=== PATIENT | male | born 1945 | race Caucasian/White ===

== ENCOUNTER 2024-02-28 10:29 | Observation (INO) | payer BC, OTHER ==
[2024-02-28] MEDS ORDERED: CEFTRIAXONE 1000 MG/VIAL ONE (10:59)
[2024-02-28] MEDS ORDERED: NA CHLORIDE 0.9% 100 ML ONE (11:00)
[2024-02-28] MEDS ORDERED: DOXYCYCLINE HYCLATE 100MG INJ ONE (11:00)
[2024-02-28 11:21] LABS: Absolute Basophils 0.1 K/uL (0-0.5); Absolute Lymphocytes (CBC) 0.9 K/uL (0.7-4.9); Absolute Monocytes 0.7 K/uL (0.1-1.3); Absolute Neutrophil 12.6 K/uL (1.8-8.0); Basophils % 0.6 % (0-1.3); Eosinophils % 0.1 % (0-4.4); Hematocrit 41.5 % (39.6-49.0); Hemoglobin 13.6 g/dL (13.6-17.9); Lymphocytes % 6.5 % (15.3-44.8); MCH 29.1 pg (27.0-35.0); MCHC 32.8 g/dL (32.0-36.0); MCV 88.9 fL (80-100); Neutrophils % 87.8 % (41.7-73.7); Platelets 261 thou/uL (152-406); RBC Red Blood Cell Count 4.67 M/uL (4.33-5.43); Red Cell Distribution Width 13.8 % (12.1-15.2)
[2024-02-28 11:22] LABS: PT Prothrombin Time 13.1 SECONDS (9.5-12.5); PTT, Activated Partial Thromb 31.3 SECONDS (24.3-36.9); Protime INR 1.2
[2024-02-28 11:34] LABS: Albumin 2.8 g/dL (3.4-5.0); Albumin/Globulin Ratio 0.6 (1.1-1.8); Anion Gap 9.4 mEq/L (5.0-15.0); Bilirubin Total 0.9 mg/dL (0.2-1.0); Globulin 4.9 g/dL (2.3-3.5); Potassium 3.4 mEq/L (3.5-5.1); Protein, Total 7.7 g/dL (6.4-8.2)
--- NOTE | 2024-02-28 11:58 | RAD REPORT ---
EXAM DESCRIPTION: Ade Single View02/28/2024 11:26 am CLINICAL HISTORY: Cough COMPARISON: none FINDINGS: Mild patchy opacities within the lung bases. Upper lobes appear clear. The heart is mildly enlarged IMPRESSION: Mild bibasilar patchy opacities may indicate pneumonia
[2024-02-28 12:04] LABS: Blood Morphology Comment NOT SEEN (NOT SEEN); Platelet Estimate ADEQ; White Blood Cell Scan OK (OK)
--- NOTE | 2024-02-28 12:29 | EDPHYS ---
Physician Documentation [facility] Name: [facility] Age: 78 yrs Sex: Male : 1945 Arrival Date: 02/28/2024 Time: 10:29 Bed 2 Private MD: Kingsley Chacon ED Physician Shilo Mohamud HPI: 02/27 10:59 This 78 yrs old Male presents to ER via Ambulatory with complaints of ec2 Breathing Difficulty, Back Pain. 10:59 Patient arrives today for evaluation of shortness of breath. Patient has been having ec2 cough, colored, no fevers or chills, no nausea or vomiting. History of COPD, no baseline oxygen requirement.. Historical: - Allergies: 10:42 PENICILLINS; as6 - PMHx: 10:42 Hypertensive disorder; Diabetes mellitus; Chronic obstructive lung disease; as6 - PSHx: 10:42 None; as6 - Immunization history:: Adult Immunizations up to date. - Infectious Disease History:: Denies. - Social history:: Smoking status: Patient/guardian denies using tobacco. ROS: 10:59 Constitutional: as per hpi ec2 Exam: 10:59 Constitutional: GEN: NAD Head: atraumatic Eyes: EOMI Ears: External ears are ec2 normal. CV: Tachycardia LUNGS: Scattered wheezes noted throughout all lung larios. ABD: non-distended SKIN: no evidence of rashes MSK: no evidence of trauma NEURO: moves all extremities equally Vital Signs: 10:41 BP 144 / 76; Pulse 105; Resp 18; Temp 98.3; Pulse Ox 88% ; Weight 85.73 kg; Height 5 as6 ft. 8 in. ; Pain 3/10; 10:45 Pulse Ox 96% on 2 lpm NC; aa5 11:15 BP 139 / 57; Pulse 84; Resp 24 S; Pulse Ox 95% on 2 lpm NC; aa5 12:12 BP 135 / 61; Pulse 86; Resp 18; Pulse Ox 96% on 2 lpm NC; rs5 14:59 Resp 20 S; Pulse Ox 97% on 4 lpm NC; jg11 10:41 Body Mass Index 28.74 (85.73 kg, 172.72 cm) as6 10:41 Pain Scale: Adult as6 MDM: 10:53 Patient medically screened. ec2 10:59 Data reviewed: vital signs. ED course: Patient arrives today for evaluation of ec2 shortness of breath. Examination remarkable for cardiorespiratory findings as above. Will obtain a septic workup, apparently treat with antibiotics and give the patient DuoNeb and steroids. Differential diagnosis includes COPD exacerbation, pneumonia, volume overload. . 11:21 ED course: EKG independently reviewed and interpreted by me, shows normal sinus rhythm, ec2 rate 94, no acute ST segment elevations, intervals are nonconcerning, right bundle branch block noted, first-degree AV block noted.. 11:54 ED course: CBC shows leukocytosis with a WBC of 14.4. Metabolic profile shows slight ec2 hypokalemia with a potassium of 3.4. Renal dysfunction with a creatinine of 1.4, GFR 51. Lactate within normal ranges. . 12:27 ED course: Chest x-ray independently and reviewed and interpreted by me, shows concern ec2 for pneumonia. Will admit for sepsis secondary to pneumonia. . 12:36 ED course: MDM: Differential diagnosis as documented above in ED course; All lab tests ec2 ordered and reviewed as documented above; Independent interpretation of tests: EKG as above; imaging as above; History gathered from independent historian: Yes;family; Discuss inpatient hospitalization: Yes; I discussed the case with: Hospitalist . 02/27 10:49 Order name: Blood Culture Adult (2) ec2 02/27 10:49 Order name: CBC with Diff; Complete Time: 12:27 ec2 02/27 10:49 Order name: CMP; Complete Time: 11:53 ec2 02/27 10:49 Order name: Lactate w/ 2H reflex if indic.; Complete Time: 11:53 ec2 02/27 10:49 Order name: Protime (+inr); Complete Time: 11:53 ec2 02/27 10:49 Order name: Ptt, Activated; Complete Time: 11:53 ec2 02/27 11:24 Order name: CBC Smear Scan; Complete Time: 12:27 EDMS 02/27 13:50 Order name: Basic Metabolic Panel EDAL 02/27 13:50 Order name: Basic Metabolic Panel EDAL 02/27 13:50 Order name: Basic Metabolic Panel EDAL 02/27 13:50 Order name: Basic Metabolic Panel EDAL 02/27 13:50 Order name: Basic Metabolic Panel EDAL 06/14 13:50 Order name: Basic Metabolic Panel EDMS 06/14 13:50 Order name: CBC with Automated Diff EDMS 06/14 13:50 Order name: CBC with Automated Diff EDMS 06/14 13:50 Order name: CBC with Automated Diff EDMS 06/14 13:50 Order name: CBC with Automated Diff EDMS 06/14 13:50 Order name: CBC with Automated Diff EDMS 06/14 13:50 Order name: CBC with Automated Diff EDMS 06/14 13:50 Order name: Hemoglobin A1c EDMS 06/14 13:50 Order name: Hemoglobin A1c EDMS 06/14 13:50 Order name: Magnesium EDMS 06/14 13:50 Order name: Magnesium EDMS 06/14 13:50 Order name: Magnesium EDMS 06/14 13:50 Order name: Magnesium EDMS 06/14 13:50 Order name: Magnesium EDMS 06/14 13:50 Order name: Magnesium EDMS 06/14 13:50 Order name: Phosphorus EDMS 06/14 13:50 Order name: Phosphorus EDMS /14 13:50 Order name: Phosphorus EDMS 06/14 13:50 Order name: Phosphorus EDMS 06/14 13:50 Order name: Phosphorus EDMS 06/14 13:50 Order name: Phosphorus EDMS 06/14 10:49 Order name: Chest Single View XRAY; Complete Time: 12:27 ec2 02/27 10:49 Order name: EKG; Complete Time: 10:50 ec2 02/27 10:49 Order name: Accucheck; Complete Time: 11:11 ec2 02/27 10:49 Order name: Cardiac monitoring; Complete Time: 11:06 ec2 02/27 10:49 Order name: EKG - Nurse/Tech; Complete Time: 11:06 ec2 02/27 10:49 Order name: IV Saline Lock - Large Bore; Complete Time: 11:06 ec2 02/27 10:49 Order name: Labs collected and sent; Complete Time: 11:11 ec2 02/27 10:49 Order name: O2 Per Protocol; Complete Time: 11:07 ec2 02/27 10:49 Order name: O2 Sat Monitoring; Complete Time: 11:06 ec2 02/27 10:49 Order name: Vital Signs; Complete Time: 11:07 ec2 Administered Medications: 11:26 Drug: Rocephin IV 1 grams IV at calculated rate once; Given slow IV push per pharmacy aa5 instructions Route: IV; Rate: calculated rate; Site: right hand; 11:30 Follow up: Response: No adverse reaction; IV Status: Completed infusion aa5 12:00 Follow up: Response: No adverse reaction rs5 11:30 Drug: vibramycin - Doxycycline IVPB 100 mg IVPB at 100 ml/hr once; (mix in 100 ml NS) aa5 Route: IVPB; Rate: 100 ml/hr; Site: right hand; 12:00 Follow up: Response: No adverse reaction rs5 Disposition: 12:28 Critical Care:. ec2 Disposition Summary: 02/28/24 12:28 Hospitalization Ordered Notes: Hospitalization Status: Inpatient Admission ec2 Location: Telemetry/[facility] (Inpatient) ec2 Condition: Stable ec2 Problem: new ec2 Symptoms: have improved ec2 Bed/Room Type: Standard ec2 Provider: Javed Gramajo(02/28/24 12:53) ec2 Room Assignment: [facility](02/28/24 14:42) eb Diagnosis - Sepsis, unspecified organism ec2 - Unspecified bacterial pneumonia ec2 Forms: - Medication Reconciliation Form ec2 - SBAR form ec2 - Leadership Thank You Letter ec2 Critical care time excluding procedures: 12:28 Critical care time: Bedside Care: 30 minutes, Consultation: 5 minutes. Total time: 35 ec2 minutes Signatures: Dispatcher [employer] EDIsabelle Foreman RN RN aa5 Nesha Hinojosa Ashby, RN RN as6 Shilo Mohamud MD MD ec2 Gilberto Frey RN rs5 Corrections: (The following items were deleted from the chart) 10:50 10:50 BLOOD CULTURE*+BA.LAB.BRZ ordered. EDMS EDMS 10:50 10:50 CBC+H.LAB.BRZ ordered. EDMS EDMS 10:50 10:50 COMPREHENSIVE METABOLIC PANEL+C.LAB.BRZ ordered. EDMS EDMS 10:50 10:50 LACTATE+C.LAB.BRZ ordered. EDMS EDMS 10:50 10:50 PROTIME (+INR)+COAG.LAB.BRZ ordered. EDMS EDMS 10:50 10:50 PTT, ACTIVATED+COAG.LAB.BRZ ordered. EDMS EDMS 12:53 12:28 Wilma Alvarado ec2 ec2 14:42 12:28 ec2 eb
--- NOTE | 2024-02-28 12:29 | ER ---
Nurse's Notes [facility] Name: [facility] Age: 78 yrs Sex: Male : 1945 Arrival Date: 02/28/2024 Time: 10:29 Bed 2 Private MD: Kingsley Chacon Diagnosis: Sepsis, unspecified organism;Unspecified bacterial pneumonia Presentation: 02/27 10:41 Chief complaint: Patient states: upper back pain and difficulty breathing that started as6 yesterday. Coronavirus screen: At this time, the client does not indicate any symptoms associated with coronavirus-19. Ebola Screen: No symptoms or risks identified at this time. Initial Sepsis Screen: Does the patient meet any 2 criteria? HR > 90 bpm. Does the patient have a suspected source of infection? No. Patient's initial sepsis screen is negative. Risk Assessment: Do you want to hurt yourself or someone else? Patient reports no desire to harm self or others. Onset of symptoms was February 27, 2024. 10:41 Acuity: KORINA 2 as6 10:41 Method Of Arrival: Ambulatory as6 Historical: - Allergies: 10:42 PENICILLINS; as6 - PMHx: 10:42 Hypertensive disorder; Diabetes mellitus; Chronic obstructive lung disease; as6 - PSHx: 10:42 None; as6 - Immunization history:: Adult Immunizations up to date. - Infectious Disease History:: Denies. - Social history:: Smoking status: Patient/guardian denies using tobacco. Screenin:45 [facility] ED Fall Risk Assessment (Adult) History of falling in the last 3 months, aa5 including since admission No falls in past 3 months (0 pts) Confusion or Disorientation No (0 pts) Intoxicated or Sedated No (0 pts) Impaired Gait No (0 pts) Mobility Assist Device Used No (0 pt) Altered Elimination No (0 pt) Score/Fall Risk Level 0 - 2 = Low Risk Oriented to surroundings, Maintained a safe environment, Educated pt \T\ family on fall prevention, incl call for assistance when getting out of bed. Abuse screen: Denies threats or abuse. Nutritional screening: No deficits noted. Tuberculosis screening: No symptoms or risk factors identified. Assessment: 10:34 General: Appears in no apparent distress. uncomfortable, Behavior is calm, cooperative. rs5 Pain: Complains of pain in back Pain currently is 2 out of 10 on a pain scale. Quality of pain is described as aching, Is continuous. Neuro: Level of Consciousness is awake, alert, obeys commands, Oriented to person, place, time, situation. Cardiovascular: Patient's skin is warm and dry. Rhythm is regular. Respiratory: Airway is patent Respiratory effort is even, unlabored, Respiratory pattern is regular, symmetrical, Respiratory: Reports shortness of breath. GI: Abdomen is round non-distended, Abd is soft and non tender X 4 quads. : No signs and/or symptoms were reported regarding the genitourinary system. EENT: No signs and/or symptoms were reported regarding the EENT system. Derm: Skin is intact, Skin is dry, Skin is pink, warm \T\ dry. Musculoskeletal: Range of motion: intact in all extremities. 11:45 Reassessment: Patient and/or family updated on plan of care and expected duration. Pain rs5 level reassessed. Patient is alert, oriented x 3, equal unlabored respirations, skin warm/dry/pink. Patient states feeling better. 12:12 Reassessment: No changes from previously documented assessment. rs5 Vital Signs: 10:41 BP 144 / 76; Pulse 105; Resp 18; Temp 98.3; Pulse Ox 88% ; Weight 85.73 kg; Height 5 as6 ft. 8 in. ; Pain 3/10; 10:45 Pulse Ox 96% on 2 lpm NC; aa5 11:15 BP 139 / 57; Pulse 84; Resp 24 S; Pulse Ox 95% on 2 lpm NC; aa5 12:12 BP 135 / 61; Pulse 86; Resp 18; Pulse Ox 96% on 2 lpm NC; rs5 14:59 Resp 20 S; Pulse Ox 97% on 4 lpm NC; jg11 10:41 Body Mass Index 28.74 (85.73 kg, 172.72 cm) as6 10:41 Pain Scale: Adult as6 ED Course: 10:31 Patient arrived in ED. rg4 10:32 Kingsley Chacon MD is Private Physician. rg4 10:33 Shilo Mohamud MD is Attending Physician. ec2 10:42 Triage completed. as6 10:43 Arm band placed on. as6 10:43 Oxygen administration via nasal cannula \T\ 2L/min. as6 10:45 Patient has correct armband on for positive identification. Bed in low position. Call aa5 light in reach. Side rails up X2. Adult w/ patient. Client placed on continuous cardiac and pulse oximetry monitoring. NIBP monitoring applied. surveillance monitor on. Pulse ox on. NIBP on. 11:06 Inserted saline lock: 22 gauge in right hand, using aseptic technique. Blood collected. rs5 11:07 EKG done, by ED staff, reviewed by Shilo Mohamud MD. jg11 11:28 Chest Single View XRAY In Process Unspecified. EDMS 12:12 No provider procedures requiring assistance completed. rs5 12:28 Wilma Alvarado MD is Hospitalizing Provider. ec2 12:53 Javed Gramajo is Hospitalizing Provider. ec2 15:00 Oxygen administration via nasal cannula \T\ 4L/min. jg11 Administered Medications: 11:26 Drug: Rocephin IV 1 grams IV at calculated rate once; Given slow IV push per pharmacy aa5 instructions Route: IV; Rate: calculated rate; Site: right hand; 11:30 Follow up: Response: No adverse reaction; IV Status: Completed infusion aa5 12:00 Follow up: Response: No adverse reaction rs5 11:30 Drug: vibramycin - Doxycycline IVPB 100 mg IVPB at 100 ml/hr once; (mix in 100 ml NS) aa5 Route: IVPB; Rate: 100 ml/hr; Site: right hand; 12:00 Follow up: Response: No adverse reaction rs5 Medication: 11:42 VIS not applicable for this client. aa5 Outcome: 12:28 Decision to Hospitalize by Provider. ec2 15:48 Patient left the ED. hb Signatures: Dispatcher [employer] EDNM Isabelle Díaz, SHARA RN aa5 Katelyn Huerta RN RN Carol Mock rg4 Jose Enamorado RN RN as6 Gilberto Frey RN RN rs5 Shilo Mohamud MD MD ec2 Malik Cantor jg11 Corrections: (The following items were deleted from the chart) 14:39 10:46 Isabelle Díaz RN is Primary Nurse. aa5 aa5
--- NOTE | 2024-02-28 13:04 | P.HP ---
Certification for Inpatient Patient admitted to: Inpatient With expected LOS: >2 Midnights Practitioner: I am a practitioner with admitting privileges, knowledge of patient current condition, hospital course, and medical plan of care. Services: Services provided to patient in accordance with Admission requirements found in Title 42 Section 412.3 of the Code of Federal Regulations Patient History Date of Service: 02/28/24 Reason for admission: COPD exacerbation secondary to pneumonia History of Present Illness: [facility] Blair is an 78-year-old male with past medical history of hypertension, diabetes mellitus, COPD (no home oxygen) who presents to the ED with chief complaint of shortness of breath. While in the ED chest x-ray was performed showing "Mild bibasilar patchy opacities may indicate pneumonia." EKG showing first-degree heart block, leukocytosis with WBC 14.4. Rocephin and doxycycline given in the ED. Initial vital BP 144 / 76; Pulse 105; Resp 18; Temp 98.3; Pulse Ox 88% [facility] Blair will be admitted to hospitalist service for further evaluation and treatment. Allergies Penicillins Allergy (Verified 02/28/24 15:58) Hives/Rash - Past Medical/Surgical History -: Hypertension -: COPD -: Diabetes mellitus - Family History Family History: Reviewed- Non-Contributory - Social History Smoking Status: Former smoker Alcohol use: No CD- Drugs: No Review of Systems Respiratory: Cough, Shortness of Breath Physical Examination - Physical Exam General: Alert, In no apparent distress, Oriented x3 HEENT: Atraumatic, Normocephalic, PERRLA Respiratory: Normal air movement, Crackles/rales Cardiovascular: Normal pulses, Regular rate/rhythm, Normal S1 S2 Capillary refill: <2 Seconds Gastrointestinal: Normal bowel sounds, Soft and benign Musculoskeletal: No clubbing Integumentary: No rashes Neurological: Normal speech, Normal tone - Studies Laboratory Data (last 24 hrs) 02/28/24 02/28/24 02/28/24 11:03 11:03 11:03 WBC 14.40 H Hgb 13.6 Hct 41.5 Plt Count 261 PT 13.1 H INR 1.20 APTT 31.3 Sodium 135 L Potassium 3.4 L BUN 32 H Creatinine 1.40 H Glucose 239 H Total Bilirubin 0.9 AST 32 ALT 50 Alkaline Phosphatase 79 Assessment and Plan - Plan Assessment and plan Acute hypoxic respiratory failure secondary to pneumonia Leukocytosis History of COPD -WBC 14.4 -CXR reports "Mild patchy opacities within the lung bases. Upper lobes appear clear. The heart is mildly enlarged. IMPRESSION: Mild bibasilar patchy opacities may indicate pneumonia" - Nebulizer, levaquin -Oxygen supplementation, he does not wear oxygen at home Acute kidney injury Electrolyte imbalance -BUN/creatinine 32/1.4, GFR 51 -Sodium 135, potassium 3.4-replete -Gentle IV fluids -Monitor in a.m. labs Diabetes mellitus -Accu-Chek with sliding scale insulin -Serum glucose 239 -A1c in the a.m. History of hypertension -Restart home medication when available DVT PPx heparin Full code LOS 2 to 3 days Discharge Plan: Home Plan to discharge in: 48 Hours - Advance Directives Does patient have a Living Will: No Does patient have a Durable POA for Healthcare: No
[2024-02-28] MEDS ORDERED: ALBUTEROL 2.5 MG/3 ML NEB SOL NEB PRN (13:43)
[2024-02-28] MEDS ORDERED: Levofloxacin500mg IV 500 MG/100 ML BAG IV SCH (15:00)
[2024-02-28] MEDS: LEVOFLOXACIN 750MG/D5W 150 ML IV SCH (16:30)
[2024-02-28] MEDS: HEPARIN 5000 UNIT/ML 1 ML VIAL SQ SCH (16:31)
[2024-02-28 19:38] VITALS: BMI 28.7
[2024-02-28] MEDS: IPRATROPIUM BROM 0.5MG/2.5ML NEB SCH (20:13)
[2024-02-28] MEDS: INSULIN REGULAR (HUMAN) 100 UNIT/ML SQ SCH (20:45)
[2024-02-28] MEDS: NACHLORIDE 0.45% 1,000 ML IV SCH (20:45)
[2024-02-29 04:02] LABS: Absolute Basophils 0.1 K/uL (0-0.5); Absolute Eosinophils 0.1 K/uL (0-0.5); Absolute Lymphocytes (CBC) 2.1 K/uL (0.7-4.9); Absolute Neutrophil 8.8 K/uL (1.8-8.0); Basophils % 0.8 % (0-1.3); Eosinophils % 0.5 % (0-4.4); Hematocrit 39.2 % (39.6-49.0); Lymphocytes % 17.1 % (15.3-44.8); MCH 29.3 pg (27.0-35.0); MCHC 33.1 g/dL (32.0-36.0); MCV 88.7 fL (80-100); MPV 10.3 fL (7.6-11.3); Monocytes % 8.4 % (3.3-12.3); Neutrophils % 73.2 % (41.7-73.7); Nucleated Red Blood Cells % 0.1 % (0-0); Platelets 253 thou/uL (152-406); RBC Red Blood Cell Count 4.42 M/uL (4.33-5.43); Red Cell Distribution Width 13.9 % (12.1-15.2)
[2024-02-29 04:15] LABS: Anion Gap 7.5 mEq/L (5.0-15.0); Magnesium 2.5 mg/dL (1.6-2.4); Phosphorus 1.8 mg/dL (2.5-4.9); Potassium 3.5 mEq/L (3.5-5.1)
[2024-02-29] MEDS: POTASS/SODIUM PHOSPHATE 1 PKT POWD.PACK PO SCH (06:37)
[2024-02-29 08:44] VITALS: BP 143/77; TEMP 97.5
[2024-02-29] MEDS: POTASSIUM CL SA 10 MEQ TAB PO ONE (09:17)
[2024-02-29] MEDS: POTASS/SODIUM PHOSPHATE 1 PKT POWD.PACK ONE (09:19)
[2024-02-29] MEDS ORDERED: IPRATROPIUM BROM 0.5MG/2.5ML NEB PRN (09:38)
--- NOTE | 2024-02-29 09:40 | P.PN ---
Date of Service: 02/29/24
--- NOTE | 2024-02-29 10:54 | P.DS ---
Admission Date: 02/28/24 Discharge Date: 02/29/24 Disposition: ROUTINE DISCHARGE Discharge Condition: FAIR Reason for Admission: COPD exacerbation secondary to pneumonia - Problems (1) Bacterial pneumonia Current Visit: Yes Status: Acute (2) COPD exacerbation Current Visit: Yes Status: Acute Brief History of Present Illness: [facility] Blair is an 78-year-old male with past medical history of hypertension, diabetes mellitus, COPD who presented to the ED with chief complaint of shortness of breath. Patient also reported associated wheezing and felt he was getting a flare of his COPD. While in the ED chest x-ray was performed showing "Mild bibasilar patchy opacities may indicate pneumonia." EKG showing first-degree heart block, leukocytosis with WBC 14.4. Rocephin and doxycycline given in the ED. Initial vital BP 144 / 76; Pulse 105; Resp 18; Temp 98.3; Pulse Ox 88% Patient was admitted for further management. Hospital Course: Patient was placed on observation on the medical floor, treated with IV Levaquin, bronchodilators and placed on oral steroids. Patient respiratory symptoms improved rapidly with treatment. He had dehydration and LORENZO which resolved with IV hydration. He feels he is at baseline this morning, denies shortness of breath or wheezing. He is ambulatory and tolerating his diet. Vitals are stable for discharge. Vital Signs/Physical Exam: Temp Pulse Resp BP Pulse Ox 97.5 F 53 14 143/77 H 98 02/29/24 08:00 02/29/24 08:00 02/29/24 08:00 02/29/24 08:00 02/29/24 08:00 General: Alert, In no apparent distress, Oriented x3 HEENT: Mucous membr. moist/pink Neck: Supple, JVD not distended Respiratory: Clear to auscultation bilaterally, Normal air movement Cardiovascular: No edema, Regular rate/rhythm, Normal S1 S2 Gastrointestinal: Normal bowel sounds, Soft and benign, Non-distended, No tenderness Musculoskeletal: No swelling Integumentary: No rashes, No cyanosis Neurological: Normal strength at 5/5 x4 extr Laboratory Data at Discharge: WBC 12.00 thou/uL (4.3-10.9) H 02/29/24 03:45 Hgb 13.0 g/dL (13.6-17.9) L 02/29/24 03:45 Hct 39.2 % (39.6-49.0) L 02/29/24 03:45 Plt Count 253 thou/uL (152-406) 02/29/24 03:45 PT 13.1 SECONDS (9.5-12.5) H 02/28/24 11:03 INR 1.20 02/28/24 11:03 APTT 31.3 SECONDS (24.3-36.9) 02/28/24 11:03 Sodium 137 mEq/L (136-145) 02/29/24 03:45 Potassium 3.5 mEq/L (3.5-5.1) 02/29/24 03:45 BUN 27 mg/dL (7-18) H 02/29/24 03:45 Creatinine 1.03 mg/dL (0.70-1.30) 02/29/24 03:45 Glucose 93 mg/dL (74-106) 02/29/24 03:45 Phosphorus 1.8 mg/dL (2.5-4.9) L 02/29/24 03:45 Magnesium 2.5 mg/dL (1.6-2.4) H 02/29/24 03:45 Total Bilirubin 0.9 mg/dL (0.2-1.0) 02/28/24 11:03 AST 32 U/L (15-37) 02/28/24 11:03 ALT 50 U/L (16-61) 02/28/24 11:03 Alkaline Phosphatase 79 U/L (45-117) 02/28/24 11:03 Home Medications: Albuterol Inhaler [Ventolin Inhaler*] 1 puff IH Q6HP PRN 02/28/24 Fluticasone Propion/Salmeterol [Fluticasone-Salmeterol 115-21] 1 puff IH BID 02/28/24 Fluticasone [Flonase 50MCG Nasal [place]*] 1 spr CARLOS DAILY 02/28/24 Lisinopril/Hydrochlorothiazide [Lisinopril-Hctz 20-25 mg Tab] 1 tab PO DAILY 02/28/24 Tamsulosin HCl 0.4 mg PO BID 02/28/24 predniSONE [Deltasone*] 10 mg PO BID 02/28/24 levoFLOXacin [Levaquin] 750 mg PO DAILY #6 tab 02/29/24 New Medications: levoFLOXacin [Levaquin] 750 mg PO DAILY #6 tab Diet: AHA Activity: Ad jessica Followup: Kingsley Chacon MD [Primary Care Provider] - Time spent managing pt's care (in minutes): 28
--- NOTE | 2024-02-29 11:08 | P.DS ---
Admission Date: 02/28/24 Discharge Date: 02/29/24 Disposition: ROUTINE DISCHARGE Discharge Condition: GOOD Reason for Admission: COPD exacerbation secondary to pneumonia Brief History of Present Illness: Diagnosis Acute hypoxic respiratory failure secondary to pneumonia Leukocytosis History of COPD Acute kidney injury Electrolyte imbalance Diabetes mellitus History of hypertension HPI 02/28/2024 Saint Humberto Blair is an 78-year-old male with past medical history of hypertension, diabetes mellitus, COPD (no home oxygen) who presents to the ED with chief complaint of shortness of breath. While in the ED chest x-ray was performed showing "Mild bibasilar patchy opacities may indicate pneumonia." EKG showing first-degree heart block, leukocytosis with WBC 14.4. Rocephin and doxycycline given in the ED. Initial vital BP 144 / 76; Pulse 105; Resp 18; Temp 98.3; Pulse Ox 88% St. Humberto Blair will be admitted to hospitalist service for further evaluation and treatment. Hospital Course: Saint Humberto Blair is a pleasant 78-year-old male with a past medical history significant for hypertension, diabetes mellitus, COPD (no home oxygen) who was admitted to the [facility] on 02/28/2024 for shortness of breath. Saint Humberto Blair presented to the ED with chief complaint of shortness of breath. Chest x-ray indicates possible pneumonia and white blood cell count mildly elevated. He has responded well to IV antibiotics and is on room air. He can continue antibiotics therapy at discharge and follow-up with Dr. Ortiz and PCP for further medication management. Allow 7 days to fully recover before working in the heat. He is tolerating p.o. diet, ambulating independently, on room air, and hemodynamically stable for discharge. On 02/29/2024, Mr. Blair was seen on morning rounds and deemed medically stable for discharge. Mr. Blair was discharged with instructions to schedule follow-up appointments with PCP and Dr. Mix. Mr. Blair was provided prescriptions for Levaquin. The patient was given the opportunity to ask questions and reported no further questions. Furthermore, all questions were answered to the best of my ability. A copy of this discharge summary will be sent to the above providers to facilitate continuity of care. Physical Exam General: Alert and oriented x 3, NAD, conversing well HEENT: Atraumatic, Normocephalic, PERRLA Respiratory: Normal air movement, mild expiratory wheezing to left lower lung field Cardiovascular: NSR, Normal S1 S2 present Capillary refill: <2 Seconds Gastrointestinal: Normal bowel sounds, Soft and benign on palpation, ND/NT Musculoskeletal: No clubbing Integumentary: No rashes Neurological: Normal speech, Normal tone Vital Signs/Physical Exam: Temp Pulse Resp BP Pulse Ox 97.5 F 53 14 143/77 H 98 02/29/24 08:00 02/29/24 08:00 02/29/24 08:00 02/29/24 08:00 02/29/24 08:00 Laboratory Data at Discharge: WBC 12.00 thou/uL (4.3-10.9) H 02/29/24 03:45 Hgb 13.0 g/dL (13.6-17.9) L 02/29/24 03:45 Hct 39.2 % (39.6-49.0) L 02/29/24 03:45 Plt Count 253 thou/uL (152-406) 02/29/24 03:45 PT 13.1 SECONDS (9.5-12.5) H 02/28/24 11:03 INR 1.20 02/28/24 11:03 APTT 31.3 SECONDS (24.3-36.9) 02/28/24 11:03 Sodium 137 mEq/L (136-145) 02/29/24 03:45 Potassium 3.5 mEq/L (3.5-5.1) 02/29/24 03:45 BUN 27 mg/dL (7-18) H 02/29/24 03:45 Creatinine 1.03 mg/dL (0.70-1.30) 02/29/24 03:45 Glucose 93 mg/dL (74-106) 02/29/24 03:45 Phosphorus 1.8 mg/dL (2.5-4.9) L 02/29/24 03:45 Magnesium 2.5 mg/dL (1.6-2.4) H 02/29/24 03:45 Total Bilirubin 0.9 mg/dL (0.2-1.0) 02/28/24 11:03 AST 32 U/L (15-37) 02/28/24 11:03 ALT 50 U/L (16-61) 02/28/24 11:03 Alkaline Phosphatase 79 U/L (45-117) 02/28/24 11:03 Home Medications: Albuterol Inhaler [Ventolin Inhaler*] 1 puff IH Q6HP PRN 02/28/24 Fluticasone Propion/Salmeterol [Fluticasone-Salmeterol 115-21] 1 puff IH BID 02/28/24 Fluticasone [Flonase 50MCG Nasal Seffner*] 1 spr CARLOS DAILY 02/28/24 Lisinopril/Hydrochlorothiazide [Lisinopril-Hctz 20-25 mg Tab] 1 tab PO DAILY 02/28/24 Tamsulosin HCl 0.4 mg PO BID 02/28/24 predniSONE [Deltasone*] 10 mg PO BID 02/28/24 levoFLOXacin [Levaquin] 750 mg PO DAILY #6 tab 02/29/24 New Medications: levoFLOXacin [Levaquin] 750 mg PO DAILY #6 tab Physician Discharge Instructions: Saint Humberto Blair presented to the ED with chief complaint of shortness of breath. Chest x-ray indicates possible pneumonia and white blood cell count mildly elevated. He has responded well to IV antibiotics and is on room air. He can continue antibiotics therapy at discharge and follow-up with Dr. Ortiz and PCP for further medication management. Allow 7 days to fully recover before working in the heat. 1. Please call and schedule a follow-up appointment with your PCP in 3-5 days - Please follow-up with your PCP for medication refills/adjustments 2. Please call and schedule a follow-up appointment with Dr Ortiz in 1-2 weeks 3. Continue regular diet 4. activity restrictions , Allow 7 days to fully recover before working in the heat. 5. Return to the ED if symptoms worsen New medications Levaquin 750 daily x 6 days Diet: AHA Activity: Ad jessica Followup: Kingsley Chacon MD [Primary Care Provider] - Pablito Ortiz MD [ACTIVE - CAN ADMIT] -
[2024-02-29 11:57] VITALS: O2SAT 96
--- NOTE | 2024-02-29 12:05 | PN ---
Code 44 on a patient who was admitted last night with pneumonia and COPD. Upon discussion with Dr. Faizan natarajan, the patient had mild pneumonia, which improved well with antibiotics and hydration. The patie nt is cleared for discharge today on oral antibiotics. I agree with the code 44. CHARO/ROSE MARY Voice ID: [id number] Report ID: [id number]
[2024-02-29] MEDS ORDERED: predniSONE 10 MG TAB PO SCH (21:00)
[2024-02-29] MEDS ORDERED: FLUTICASONE PROPION IH SCH (21:00)
[2024-02-29] MEDS ORDERED: [UNRECOGNIZED DRUG - OTHER] IH SCH (21:00)
[2024-02-29] MEDS ORDERED: SALMETEROL IH SCH (21:00)
[2024-03-01] MEDS ORDERED: HOME MED 1 EA UNK (Lisinopril/Hydrochlorothiazide [Lisinopril-Hctz 20-25 Mg Tab] Tablet) PO SCH (09:00)
--- NOTE | 2024-03-02 15:04 | EKG ---
Test Date: 2024-02-28 Test Time: 11:05:19 [employer]: LIZA MEASUREMENT RESULTS: Intervals: Rate: 94 MO: 210 QRSD: 114 QT: 384 QTc: 480 [place]: P: 106 MO: 210 QRS: -2 T: 63 INTERPRETIVE STATEMENTS: Sinus rhythm with marked sinus arrhythmia with 1st degree AV block Incomplete right bundle branch block Cannot rule out Anterior infarct, age undetermined Abnormal ECG Compared to ECG 05/30/2005 08:45:00 Incomplete right bundle-branch block now present Myocardial infarct finding now present Sinus bradycardia no longer present Intraventricular conduction delay no longer present Electronically Signed On 03-02-24 14:54:37 CDT by George Armstrong
== END 2024-02-29 11:50 | disposition home or self-care (01) ==
LOC: ER 10:29 → ERHOLD 13:41 → INTOOBSV 13:41 → 2ND 15:01
PROVIDERS: ADMIT Internal Medicine; ATTEND Internal Medicine
DX: J15.9 Unspecified bacterial pneumonia (principal); J44.1 Chronic obstructive pulmonary disease with (acute) exacerbation; J96.01 Acute respiratory failure with hypoxia; I44.0 Atrioventricular block, first degree; N17.9 Acute kidney failure, unspecified; D72.829 Elevated white blood cell count, unspecified; J44.9 Chronic obstructive pulmonary disease, unspecified; E11.9 Type 2 diabetes mellitus without complications; I10 Essential (primary) hypertension; E86.0 Dehydration; E87.8 Other disorders of electrolyte and fluid balance, not elsewhere classified
CPT/HCPCS: 93005; 87040 ×2; 85025 ×2; 80048; 36415; 83735; 84100; 85610; 82947 ×2; 83605; 85730; 83036; 80053; 71045; 94640; 96375; 96374; 99285; J1644 ×3; J7644 ×3; J0696; G0378 ×3